=== PATIENT | male | born 1995 | race Caucasian/White ===

== ENCOUNTER 2016-09-27 13:32 | Emergency (ER) | payer BC ==
[2016-09-27] MEDS ORDERED: CYCLOBENZAPRINE 10 MG TAB ONE (14:21)
== END 2016-09-27 15:56 | disposition home or self-care (01) ==
LOC: ER 13:32
DX: S39.012A Strain of muscle, fascia and tendon of lower back, initial encounter (principal); W17.89XA Other fall from one level to another, initial encounter; Y93.89 Activity, other specified; Y92.828 Other wilderness area as the place of occurrence of the external cause
CPT/HCPCS: 72100